=== PATIENT | male | born 1980 | race Caucasian/White ===

== ENCOUNTER 2021-03-27 07:29 | Emergency (ER) | payer OTHER ==
[~2021-03-27] VITALS: Ht 182.9 cm; Wt 87.3 kg
[2021-03-27 07:48] VITALS: BP 114/79
[2021-03-27] MEDS ORDERED: IBUPROFEN 600 MG TABLET. PO ONE (08:00)
--- NOTE | 2021-03-27 08:24 | RAD ---
XR EXAM OF ANKLE_LEFT 3V History: Status post fall. Comparison: None. Technique: 4 views the left ankle. Findings: Osseous mineralization is normal. There is a lateral plate and screw fixation of the distal fibula. N o acute fractures identified. Irregular ossifications at the lateral malleolus tip and lateral talus consistent with sequela of old injury. Soft tissue swelling at the lateral ankle. Impression: 1. No acute osseous abnormality of the left ankle. Electronically signed by: Valentino Vaughn MD (03/27/2021 8:22 AM) [id number]
--- NOTE | 2021-03-27 08:39 | PHYS DOC ---
Past History Past Surgical History: Other Additional Past Surgical Histo: LLE hardware Alcohol Use: None General Adult EDM: Chief Complaint: LOWEREXTREMITY INJURY HPI: HPI: Patient is a [age] year old [sex] who presents with [] Review of Systems: Review of Systems: Constitutional: Denies fever or chills Eyes: Denies redness or eye pain HENT: Denies nasal congestion or sore throat Respiratory: Denies cough or shortness of breath Cardiovascular: Denies chest pain or palpitations GI: Denies abdominal pain, nausea, or vomiting : Denies dysuria or hematuria Musculoskeletal: Denies back pain; reports left ankle pain and swelling Integument: Denies rash or skin lesions Neurologic: Denies headache, focal weakness or sensory changes; reports numbness to left toes Complete systems were reviewed and found to be within normal limits, except as documented in this note. Current Medications: Current Meds: Current Medications Medications (Trade) Dose Ordered Sig/Greta Start Time Stop Time Status Last Admin Dose Admin Ibuprofen (Motrin) 600 mg 1X ONCE 03/27/21 08:00 03/27/21 08:01 DC Allergies: Allergies: Allergies Coded Allergies Type Severity Reaction Last Updated Verified No Known Drug Allergies 03/27/21 No Physical Exam: PE: Constitutional: Well developed, well nourished, no acute distress, non-toxic appearance HENT: Normocephalic, atraumatic Eyes: Conjunctiva normal, no discharge Neck: Normal range of motion, supple Lungs & Thorax: No respiratory distress, equal chest rise and fall Skin: Warm, dry, no erythema, small abrasion noted to right anterior knee Extremities: Left lateral malleolar tenderness with moderate edema noted, anterior drawer negative, pain on movement and palpation, DP and PT + 2 on left Neurologic: Alert and oriented X 3, normal motor function, normal sensory func tion, no focal deficits noted Psychologic: Affect normal, judgment normal Current Patient Data: Vital Signs: Vital Signs Date Time Temp Pulse Resp B/P (MAP) Pulse Ox O2 Delivery O2 Flow Rate FiO2 03/27/21 07:48 84 18 114/79 100 EKG: EKG: [] Radiology/Procedures: Radiology/Procedures: PROCEDURE: ANKLE LEFT 3V XR EXAM OF ANKLE_LEFT 3V History: Status post fall. Comparison: None. Technique: 4 views the left ankle. Findings: Osseous mineralization is normal. There is a lateral plate and screw fixation of the distal fibula. No acute fractures identified. Irregular ossifications at the lateral malleolus tip and lateral talus consistent with sequela of old injury. Soft tissue swelling at the lateral ankle. Impression: 1. No acute osseous abnormality of the left ankle. Electronically signed by: Valentino Vaughn MD (03/27/2021 8:22 AM) [id number] Heart Score: C/O Chest Pain: N/A Course & Med Decision Making: Course & Med Decision Making Pertinent Imaging studies reviewed. (See chart for details) Patient presents with mechanical slip and fall while running this morning. Patient with lateral malleoli are tenderness and swelling. X-ray obtained without signs of fracture or dislocation. Pain addressed. Ice applied. Brent wrap and air splint applied. Crutches provided with instruction. Patient stable for discharge with outpatient follow-up with PCP/orthopedics. Orthopedic referral provided. Discussed findings and plan with patient, who acknowledges understanding and agreement. Latasha Disclaimer: Latasha Disclaimer: This electronic medical record was generated, in whole or in part, using a voice recognition dictation system. Departure Departure: Impression: Primary Impression: Left ankle sprain Qualified Codes: S93.402A - Sprain of unspecified ligament of left ankle, initial encounter Disposition: HOME / SELF CARE / HOMELESS Condition: STABLE Referrals: PCP,PERRY (PCP) ANITHA LAU MD Patient Instructions: Ankle Sprain, [id number], Crutch Use, [id number], Elastic Bandage and RICE Additional Instructions: ICE area of discomfort 20 min on then leave off next 20 mins. Repeat several times for next few days. Take [id number] ibuprofen and or Tylenol for pain or discomfort. MARIA EUGENIA BENITO DO Mar 27, 2021 08:39
[2021-03-27] MEDS ORDERED: TAMS0.4C97 PO (08:48)
[2021-03-27] MEDS ORDERED: HYDR-2759 PO (08:48)
[2021-03-27] MEDS ORDERED: ONDA4TAB12 PO (08:48)
[2021-03-27] MEDS ORDERED: HYDROcodone/APAP 5/325MG 1 TAB TABLET PO ONE (09:00)
== END 2021-03-27 09:00 | disposition home or self-care (01) ==
LOC: ER 07:29
DX: S93.402A Sprain of unspecified ligament of left ankle, initial encounter (principal); W18.39XA Other fall on same level, initial encounter; Y93.02 Activity, running; Y92.89 Other specified places as the place of occurrence of the external cause; Y99.8 Other external cause status
CPT/HCPCS: 73610; 99283; L4350